=== PATIENT | female | born 1970 | race Caucasian/White ===

== ENCOUNTER 2018-05-12 04:30 | Observation (INO) | payer SELFPAY ==
[2018-05-12 07:10] LABS: Troponin I Less than 0.010 ng/mL (< 0.028)
[2018-05-12] MEDS ORDERED: Ibuprofen 800 MG TAB ONE (08:50)
[2018-05-12 14:12] VITALS: BMI 39.9
[2018-05-12] MEDS ORDERED: Nitroglycerin 0.4 MG TAB (25 Tab Bottle) PO PRN (15:26)
[2018-05-12] MEDS ORDERED: Ondansetron PF 4 MG/2 ML Vial IVP PRN (15:26)
[2018-05-12] MEDS ORDERED: Ondansetron ODT 4 MG TAB PO PRN (15:26)
[2018-05-12] MEDS ORDERED: Zolpidem Tartrate 5 MG TAB PO PRN (15:26)
[2018-05-12] MEDS ORDERED: Acetaminophen 325 MG TAB PO PRN (15:26)
[2018-05-12] MEDS ORDERED: Mag-Al Plus 1200 MG/1200 MG/120 MG/30 ML UDCUP PO PRN (15:32)
[2018-05-12 17:29] LABS: Troponin I Less than 0.010 ng/mL (< 0.028)
--- NOTE | 2018-05-13 01:00 | HP ---
CHIEF COMPLAINT: Chest pain. HISTORY OF PRESENT ILLNESS: This is a 47-year-old female patient, who developed what she describes as a squeezing pain 8/10 with subjective feeling of shortness of breath and slow heartbeat. According to the patient, denies any known exacerbating or relieving factor. The patient has never experienced this type of pain before. The patient was very consented about her heart and decided to present to the ER. PAST MEDICAL HISTORY: Significant for diabetes and dyslipidemia. FAMILY HISTORY: Significant for heart disease in multiple family members. SOCIAL HISTORY: Denies alcohol, tobacco, or illicit drug use. REVIEW OF SYSTEMS: As documented in the body of the history. All other systems were reviewed and found not to be significant to the presenting complaint. ALLERGIES: NO KNOWN DRUG ALLERGIES. LABORATORY INVESTIGATIONS: Unremarkable troponin. CBCs are unremarkable. Chemistry is unremarkable except the bicarb of 19. PHYSICAL EXAMINATION: GENERAL: The patient was found not to be in any obvious distress. VITAL SIGNS: Following vital signs; afebrile with temperature 98, pulse 81, respiratory rate of 18, O2 saturation of 98% with blood pressure 111/67. HEENT: Unremarkable. Moist oral mucosa. NECK: Supple. No conjunctival injection or icterus. CARDIOVASCULAR SYSTEM: First and second heart sounds were heard. RESPIRATORY SYSTEM: Clear to auscultation. DIGESTIVE SYSTEM: Revealed a benign abdomen with positive bowel sounds. EXTREMITIES: No peripheral edema. SKIN: No new gross rash. LYMPHATICS: No peripheral lymphadenopathy. IMPRESSION: 1. Chest pain, query cause. Differential to include angina and possible reflux disease. 2. Dyslipidemia. 3. Diabetes mellitus type 2. 4. Positive family history of heart disease. PLAN: 1. Stress test. 2. Proton pump inhibitor, as well as antacid. 3. Further management will be dependent on the clinical course. If the stress test is positive, we will consult the professional housing consultant. Job ID: [id number]
[2018-05-13 05:15] LABS: Troponin I Less than 0.010 ng/mL (< 0.028)
[2018-05-13] MEDS ORDERED: Pantoprazole 40 MG GRANULES PACKET PO SCH (09:00)
[2018-05-13] MEDS ORDERED: Enoxaparin Sodium 40 MG/0.4 ML SYRINGE SC SCH (09:00)
[2018-05-13] MEDS ORDERED: Aspirin 325 MG TAB PO SCH (09:00)
--- NOTE | 2018-05-13 09:17 | PDOC.PN ---
- Subjective Encounter Start Date: 05/13/18 Encounter Start Time: 09:14 Subjective: Seen and examined -no new complaint - Objective Resuscitation Status - Order Detail: 05/12/18 15:26 Resuscitation Status Routine Resuscitation Status: FULL: Full Resuscitation Vital Signs & Weight: Vital Signs (12 hours) Temp Pulse Resp BP Pulse Ox 05/13/18 07:46 98.3 F 81 16 117/70 99 05/13/18 03:57 97.9 F 90 18 130/58 L 97 Weight Weight 255 lb I&O: 05/12/18 05/13/18 05/14/18 06:59 06:59 06:59 Intake Total 1450 Balance 1450 Additional Labs: Accuchecks 05/13/18 05/12/18 05/12/18 04:02 21:24 16:47 POC Glucose 89 132 H 102 Phys Exam - Physical Examination Constitutional: NAD HEENT: PERRLA, moist MMs, sclera anicteric, TM's clear, oral pharynx no lesions Neck: no nodes, no JVD, supple, full ROM Respiratory: no wheezing, no rales, no rhonchi, clear to auscultation bilateral Cardiovascular: RRR, no significant murmur, no rub Gastrointestinal: soft, non-tender, no distention, positive bowel sounds Musculoskeletal: no edema, pulses present Dx/Plan (1) Chest pain Code(s): R07.9 - CHEST PAIN, UNSPECIFIED Status: Acute (2) Dyslipidemia Code(s): E78.5 - HYPERLIPIDEMIA, UNSPECIFIED Status: Acute (3) Diabetes 1.5, managed as type 2 Code(s): E13.9 - OTHER SPECIFIED DIABETES MELLITUS WITHOUT COMPLICATIONS Status: Acute - Plan Stress test today -: If -ve -d/c--if +ve consult cardiology * .
[2018-05-13 13:55] VITALS: TEMP 97.4
--- NOTE | 2018-05-13 14:03 | NM ---
NUCLEAR MEDICINE CARDIAC MYOCARDIAL PERFUSION SPECT EJECTION FRACTION STUDY WALL MOTION CINE: DATE: 05/13/18 HISTORY: 47-year-old female with chest pain. TECHNIQUE: Number of days: 1 Rest study: Not performed. This was a stress-only study. Pharmacologic stress: adenosine dose: 64.4 mg Stress study: Tc99m sestamibi (Cardiolite) dose: 27.0 mCi FINDINGS: CARDIAC (MYOCARDIAL PERFUSION) SPECT There are no left ventricular myocardial perfusion defects. EJECTION FRACTION STUDY EF = 69% WALL MOTION CINE Normal. IMPRESSION: Normal. PARI Escobar POS: GLENYS
[2018-05-13 16:51] VITALS: BP 115/83
--- NOTE | 2018-05-14 23:46 | EKG ---
Test Reason : Blood Pressure : / mmHG Vent. Rate : 066 BPM Atrial Rate : 066 BPM P-R Int : 132 ms QRS Dur : 096 ms QT Int : 444 ms P-R-T Axes : 028 001 015 degrees QTc Int : 465 ms Sinus rhythm with Premature atrial complexes with Abberant conduction Otherwise normal ECG Confirmed by THOMAS ELLIS DO ([id number]), film and video editor JANIE TYSON ([id number]) on 05/14/2018 11:45:48 PM Referred By: Confirmed By:THOMAS ELLIS DO
== END 2018-05-13 17:47 | disposition home or self-care (01) ==
LOC: ERS 04:30 → ERHOLD 04:44 → 2SW 13:05
PROVIDERS: ADMIT Internal Medicine; ATTEND Internal Medicine
DX: R07.9 Chest pain, unspecified (principal); E11.9 Type 2 diabetes mellitus without complications; E78.5 Hyperlipidemia, unspecified; Z79.4 Long term (current) use of insulin; Z79.899 Other long term (current) drug therapy
CPT/HCPCS: 36415; 36416; 78452; 84484; 93005; 93017; 94760; A9500; G0378; J0153; J1650

== ENCOUNTER 2020-07-17 13:32 | Observation (INO) | payer SELFPAY ==
[2020-07-17 14:38] LABS: #Basophils 0.1 thou/uL (0.0-0.2); #Eosinphils 0.3 thou/uL (0.0-0.7); #Lymphocytes 3.8 thou/uL (1.20-3.40); #Monocytes 0.6 thou/uL (0.11-0.59); #Neutrophils 4.3 thou/uL (1.40-6.50); %Eosinophils 3.8 % (0.0-10.0); %Lymphocytes 41.7 % (21.0-51.0); %Monocytes 6.8 % (0.0-10.0); %Neutrophils 46.7 % (42.0-75.0); Hemoglobin 13.6 g/dL (12.0-16.0); Mean Corpuscular HGB CONC 33.4 g/dL (32.0-36.0); Mean Corpuscular Hemoglobin 29.8 pg (27.0-31.0); Mean Corpuscular Volume 89.4 fL (78.0-98.0); Mean Platelet Volume 7.7 fL (7.4-10.4); Platelet Count 338 thou/uL (130-400); RBC Distribution Width 12.2 % (11.5-14.5); Red Blood Cell (RBC) Count 4.57 mill/uL (4.20-5.40); White Blood Cell (WBC) Count 9.1 thou/uL (4.8-10.8)
[2020-07-17] MEDS ORDERED: Aspirin Chewable 81 MG TAB ONE (14:53)
[2020-07-17 14:58] LABS: ALT (SGPT) 25 U/L (8-55); AST (SGOT) 17 U/L (5-34); Albumin 3.9 g/dL (3.5-5.0); Alkaline Phosphatase 45 U/L (40-110); Anion Gap 15 mmol/L (10-20); BUN (Urea Nitrogen) 16 mg/dL (7.0-18.7); Bilirubin, Total 0.2 mg/dL (0.2-1.2); Calc. Creatinine Clearance 0 mL/min (70-130); Calcium 9.3 mg/dL (7.8-10.44); Carbon Dioxide 22 mmol/L (22-29); Chloride 104 mmol/L (98-107); Globulin 3.2 g/dL (2.4-3.5); Glucose 185 mg/dL (70-105); Potassium 4.2 mmol/L (3.5-5.1); Protein, Total 7.1 g/dL (6.0-8.3); Sodium 137 mmol/L (136-145)
[2020-07-17] MEDS ORDERED: Cyclobenzaprine 10 MG TAB PO PRN (16:24)
[2020-07-17] MEDS ORDERED: Nitroglycerin 0.4 MG TAB (25 Tab Bottle) SL PRN (16:29)
[2020-07-17 17:27] LABS: Hemoglobin A1c 7.4 % (4.0-6.0)
[2020-07-17] MEDS ORDERED: Enoxaparin Sodium 40 MG/0.4 ML SYRINGE SC SCH (17:30)
[2020-07-17] MEDS ORDERED: Pantoprazole 40 MG GRANULES PACKET PO SCH (17:30)
[2020-07-17 17:44] LABS: Troponin I 0.011 ng/mL (< 0.028)
[2020-07-17 17:47] LABS: Cardiac Risk 5.5 (Less than 4.5); Cholesterol 241 mg/dl (< 200 Desired); HDL Cholesterol 44 mg/dL (>60 Neg Risk); Triglycerides 461 mg/dL (Less than 150)
[2020-07-17] MEDS: Carvedilol 6.25 MG TAB PO SCH (18:56)
[2020-07-17] MEDS ORDERED: Atorvastatin Calcium 40 MG TAB PO SCH (21:00)
[2020-07-17] MEDS ORDERED: Lantus 1000 UNITS/10 ML VIAL SC SCH (21:00)
[2020-07-17 21:07] VITALS: BMI 41.1
[2020-07-17 22:17] LABS: Troponin I Less than 0.010 ng/mL (< 0.028)
[2020-07-17] MEDS: Acetaminophen 325 MG TAB PO PRN (22:30)
[2020-07-18 02:33] LABS: SARS-CoV-2 PCR by NAA Not Detected (NotDetected)
[2020-07-18] MEDS ORDERED: Aspirin 325 mg Enteric Coated Tablet PO SCH (09:00)
[2020-07-18] MEDS ORDERED: Pantoprazole 40 MG GRANULES PACKET PO SCH (09:00)
[2020-07-18] MEDS ORDERED: Enoxaparin Sodium 40 MG/0.4 ML SYRINGE SC SCH (09:00)
[2020-07-18] MEDS: Carvedilol 6.25 MG TAB PO SCH (11:47)
[2020-07-18] MEDS: Acetaminophen 325 MG TAB PO PRN (11:47)
[2020-07-18 12:05] VITALS: BP 131/76; TEMP 98.9
== END 2020-07-18 14:00 | disposition home or self-care (01) ==
LOC: ERS 13:32 → 2SW 15:58
PROVIDERS: ADMIT Internal Medicine; ATTEND Internal Medicine
DX: R07.89 Other chest pain (principal); R00.2 Palpitations; E11.22 Type 2 diabetes mellitus with diabetic chronic kidney disease; N18.2 Chronic kidney disease, stage 2 (mild); E78.5 Hyperlipidemia, unspecified; R94.31 Abnormal electrocardiogram [ECG] [EKG]; E66.01 Morbid (severe) obesity due to excess calories; Z68.41 Body mass index [BMI] 40.0-44.9, adult; Z79.4 Long term (current) use of insulin; Z79.899 Other long term (current) drug therapy; Z20.822 Contact with and (suspected) exposure to COVID-19
CPT/HCPCS: 36415; 36416; 71045; 78452; 80053; 80061; 83036; 83880; 84484; 85025; 87635; 93005; 93017; 96372; A9500; G0378; J0153; J1650; U0003; U0005